=== PATIENT | male | born 1945 | race Caucasian/White ===

== ENCOUNTER 2017-02-10 10:30 | Outpatient (CLI) | payer OTHER ==
--- NOTE | 2017-02-10 11:29 | DIAGNOSTIC IMAGING REPORT ---
PROCEDURE: XR CHEST 2 VIEW INDICATION: HYPERTENSION TECHNIQUE: PA and lateral views. COMPARISON: Chest 09/03/2014 FINDINGS: Mild hyperinflation. Lungs are clear. Normal cardiovascular structures. Bony thorax is unremarkable. IMPRESSION: 1. Mild hyperinflation 2. No acute changes .
== END 2017-02-10 23:00 | disposition home or self-care (01) ==
LOC: XR SRH 10:30
DX: I10 Essential (primary) hypertension (principal)